=== PATIENT | male | born 1995 | race Caucasian/White ===

== ENCOUNTER 2020-09-15 04:22 | Emergency (ER) | payer BC ==
[~2020-09-15] VITALS: Ht 188 cm; Wt 84.1 kg
[2020-09-15 04:28] VITALS: BP 137/77
== END 2020-09-15 06:20 | disposition home or self-care (01) ==
LOC: ER 04:24
DX: H60.331 Swimmer's ear, right ear (principal); H92.01 Otalgia, right ear
CPT/HCPCS: 99282